=== PATIENT | male | born 1955 | race Hispanic/Latino ===

== ENCOUNTER 2017-09-22 18:08 | Emergency (ER) | payer BC, OTHER ==
[2017-09-22] MEDS ORDERED: CYCLOBENZAPRINE HCL 10 MG TABLET ONE (18:33)
[2017-09-22] MEDS ORDERED: KETOROLAC TROMETHAMINE 30MG/ML ONE (18:33)
== END 2017-09-22 19:24 | disposition home or self-care (01) ==
LOC: EDH 18:08
DX: M54.5 Low back pain (principal); I10 Essential (primary) hypertension; E78.5 Hyperlipidemia, unspecified; E11.9 Type 2 diabetes mellitus without complications; Z98.890 Other specified postprocedural states
CPT/HCPCS: 96372; 99283; J1885

== ENCOUNTER 2020-07-16 13:18 | Emergency (ER) | payer BC, MEDICARE ==
[2020-07-16 13:41] LABS: BASOPHILS % (AUTO) 0.5 % (0.0-5.0); EOSINOPHILS % (AUTO) 1.7 % (0.0-8.0); HEMATOCRIT 40.1 % (42-54); LYMPHOCYTES % (AUTO) 22.9 % (21.0-51.0); MEAN CORPUSCULAR HEMOGLOBIN 30.6 pg (27.0-33.0); MEAN CORPUSCULAR HGB CONC 35.4 g/dL (32.0-36.0); MEAN CORPUSCULAR VOLUME 86.4 fL (79-99); MONOCYTES % (AUTO) 5.6 % (3.0-13.0); NEUTROPHILS % (AUTO) 68.8 % (40.0-77.0); PLATELET COUNT (AUTO) 163 K/uL (130-400); RED BLOOD CELL COUNT(AUTO) 4.64 MIL/uL (4.50-6.20); RED CELL DISTRIBUTION WIDTH 11.8 % (11.0-15.5); WHITE BLOOD COUNT (AUTO) 7.6 K/uL (4.8-10.8)
[2020-07-16 13:51] LABS: POTASSIUM 3.9 mmol/L (3.5-5.1)
[2020-07-16 13:58] LABS: ALBUMIN 3.7 g/dL (3.5-5.0); BILIRUBIN,TOTAL 0.6 mg/dL (0.2-1.0); TOTAL PROTEIN, SERUM 6.6 g/dL (6.0-8.3)
[2020-07-16 14:06] LABS: INR 0.96 (0.85-1.15); PROTHROMBIN TIME 10.3 SEC (9.6-11.6)
[2020-07-16 14:07] LABS: PARTIAL THROMBOPLASTIN TIME 26.4 SEC (26.3-35.5)
[2020-07-16] MEDS ORDERED: ONDANSETRON HCL 4 MG/2 ML VIAL ONE (14:35)
[2020-07-16] MEDS ORDERED: MORPHINE SULFATE 2 MG/ML 1ML SYG ONE (14:36)
[2020-07-16] MEDS ORDERED: ASPIRIN 325 MG TABLET ONE (14:36)
[2020-07-16] MEDS ORDERED: SODIUM CHLORIDE 0.9% 500ML 500 ML IV ONE (14:37)
== END 2020-07-16 18:28 | disposition home or self-care (01) ==
LOC: EDH 13:18
DX: R07.89 Other chest pain (principal); Z20.828 Contact with and (suspected) exposure to other viral communicable diseases; E11.9 Type 2 diabetes mellitus without complications; E78.5 Hyperlipidemia, unspecified; I10 Essential (primary) hypertension
CPT/HCPCS: 36415; 71045; 80053; 84484 ×2; 85025; 85610; 85730; 87426; 93005; 99285; J7040; U0003; J2405

== ENCOUNTER → 2020-08-28 | Outpatient (CLI) | payer BC, MEDICARE ==
[~2020-08-28] MED LIST: REGADENOSON 0.4 MG/5 ML PF SYG IVP SCH
== END | disposition home or self-care (01) ==
LOC: RAH 08:26
PROVIDERS: ATTEND Internal Medicine Cardiovascular Disease
DX: I10 Essential (primary) hypertension (principal); R07.9 Chest pain, unspecified
CPT/HCPCS: 78452; 93017; 96374; A9500 ×2; J2785

== ENCOUNTER → 2020-09-25 | Outpatient (CLI) | payer BC, MEDICARE | END | disposition home or self-care (01) | LOC: RAH 14:39 | PROVIDERS: ATTEND Family Medicine | DX: I87.2 Venous insufficiency (chronic) (peripheral) (principal); M79.89 Other specified soft tissue disorders | CPT/HCPCS: 93971 ==

== ENCOUNTER → 2020-12-03 | Outpatient (CLI) | payer BC, MEDICARE | END | disposition home or self-care (01) | LOC: RAH 09:33 | PROVIDERS: ATTEND Family Medicine | DX: K80.20 Calculus of gallbladder without cholecystitis without obstruction (principal); N28.1 Cyst of kidney, acquired; K76.0 Fatty (change of) liver, not elsewhere classified; R16.0 Hepatomegaly, not elsewhere classified; Z87.442 Personal history of urinary calculi | CPT/HCPCS: 76700 ==

== ENCOUNTER → 2025-04-15 | Outpatient (CLI) | payer OTHER, MEDICARE ==
--- NOTE | 2025-04-15 17:54 | HMCIMG ---
EXAM: CR Abdomen, 1 View. CLINICAL HISTORY: CALCULUS OF KIDNEY COMPARISON: None provided. FINDINGS: BOWEL: Nonspecific bowel gas pattern PERITONEUM/SOFT TISSUES: Ultrasound recommended to better exclude calculus secondary to extensive stool BONES: No aggressive appearing osseous lesion seen. MISCELLANEOUS: Extensive stool throughout the intestines IMPRESSION: 1. Nonspecific bowel gas pattern 2. Extensive stool throughout the intestines 3. Ultrasound recommended to better exclude calculus secondary to extensive stool /[place]
--- NOTE | 2025-04-15 22:15 | HMCIMG ---
EXAM: Tomogram of the Abdomen, 7 Views. CLINICAL HISTORY: Kidney calculus. COMPARISON: None. FINDINGS: Nonobstructed nonspecific bowel gas pattern. No free air is evident. No abnormal calcification. No aggressive appearing osseous lesion. IMPRESSION: No renal calculus is evident on abdominal tomogram. If the clinical concern persists, recommend a noncontrast CT scan of the chest for an optimal evaluation. /[place]
== END | disposition home or self-care (01) ==
LOC: RAH 08:52
PROVIDERS: ATTEND Urology
DX: N20.0 Calculus of kidney (principal)
CPT/HCPCS: 74018; 76100